=== PATIENT | female | born 1955 | race Caucasian/White ===

== ENCOUNTER 2023-06-04 12:09 | Outpatient (CLI) | payer MEDICARE, SELFPAY ==
--- NOTE | 2023-06-04 13:23 | ECG_ITS ---
Measurements Intervals [place] Rate: 76 P: 21 OK: 181 QRS: -11 QRSD: 86 T: 40 QT: 369 QTc: 416 Interpretive Statements SINUS RHYTHM DELAYED PRECORDIAL R/S TRANSITION CONSIDER INFERIOR INFARCT, AGE INDETERMINATE NONSPECIFIC T-WAVE ABNORMALITY- ANTEROLAT/HIGH LAT LEADS BASELINE ARTIFACT- I, II, AVR, AVL, AVF ABNORMAL ECG NO PREVIOUS ECG AVAILABLE FOR COMPARISON Electronically Signed On 06-04-2023 13:36:35 CDT by Jaylon Chong D.O.
[2023-06-04 13:39] LABS: Basophils Percent Auto 0.8 % (0.2-1.2); Eosinophils Absolute Auto 0.2 K/mm3 (0-0.3); Eosinophils Percent Auto 4.1 % (0-4.4); Hematocrit 44.7 % (37.0-47.0); Hemoglobin 14.7 g/dL (12.0-15.0); Immature Granulocyte Absolute 0.01 K/mm3 (0.00-0.031); Immature Granulocyte Percent A 0.2 % (0-0.5); Lymphocytes Absolute Auto 1.89 K/mm3 (0.9-3.2); Lymphocytes Percent Auto 35.5 % (18.3-44.2); Mean Corpuscular HGB Conc 32.9 g/dl (32-36); Mean Corpuscular Hemoglobin 28.5 pg (26-34); Mean Corpuscular Volume 86.6 fl (80-100); Mean Platelet Volume 8.8 fl (7.4-10.4); Monocytes Absolute Auto 0.8 K/mm3 (0.1-0.6); Monocytes Percent Auto 14.1 % (2.6-8.5); Neutrophils Absolute Auto 2.4 K/mm3 (1.3-6.7); Neutrophils Percent Auto 45.3 % (45.5-73.1); Platelet Count Result 203 k/mm3 (150-375); Red Blood Count 5.16 M/mm3 (4.2-5.4); Red Cell Distribution Width 12.9 % (11.5-14.5); White Blood Count 5.3 K/mm3 (4.5-10.0)
[2023-06-04 13:48] LABS: Alanine Aminotransferase 25 U/L (6-35); Albumin Level 4.8 g/dL (3.5-5.1); Alkaline Phosphatase 69 U/L (38-126); Anion Gap 10 mmol/L (8-16); Aspartate Amino Transferase 25 U/L (14-36); Bilirubin,Total 0.5 mg/dL (0.2-1.3); Blood Urea Nitrogen 14 mg/dL (7-17); Calcium 9.4 mg/dL (8.4-10.2); Carbon Dioxide 25 mmol/L (22-30); Chloride 105 mmol/L (98-107); Estimated Glomerular Filt Rate > 60; Glucose 102 mg/dL (65-110); Potassium 3.9 mmol/L (3.4-5.0); Sodium 140 mmol/L (137-145)
[2023-06-04 13:50] LABS: INR 0.9; Partial Thromboplastin Time 27.1 SECONDS (22.3-36.8); Prothrombin Time 12.9 Seconds (11.1-14.7)
== END 2023-06-04 12:10 | disposition home or self-care (01) ==
LOC: ANHSURGERY 12:10
PROVIDERS: Visit Provider Urology
DX: N81.10 Cystocele, unspecified (principal); E78.00 Pure hypercholesterolemia, unspecified; Z01.818 Encounter for other preprocedural examination; R94.31 Abnormal electrocardiogram [ECG] [EKG]
CPT/HCPCS: 36415; 80053; 85025; 85610; 85730; 86850; 86900; 86901; 93005

== ENCOUNTER 2023-06-15 02:28 | Day surgery (SDC) | payer MEDICARE, SELFPAY ==
[2023-06-04 12:26] VITALS: BMI 31.2
--- NOTE | 2023-06-04 13:03 | PC.NURSE ---
Report to the Outpatient Waiting Room, entrance under the green pavilion located off [facility], at time _0600 on date _06/15/23 . Planned Procedure Time: ____30____. Time changes happen often and if your time is changed the preop area will call you the afternoon before. - You and your visitor will be asked to self-screen and do not enter if you have any COVID symptoms. - A mask is optional within the hospital at this time. Patients may have clear liquids (water, carbonated beverages, clear teas, apple juice) until 3 hours prior to surgery with a maximum of 20 ounces. - No food from midnight until time of surgery - Infants may have breast milk until 4 hours before surgery, infant formula 6 hours prior to surgery. - Children will be allowed to drink immediately following surgery. If applicable, please bring a bottle or sippy cup to assist with drinking. Juice, water, soda, and popsicles are readily available. For infants on formula, please bring formula the day of surgery. Pacifiers are allowed. Take the following medications with a SIP of water the morning of surgery: ___NONE DO NOT STOP ANY OF YOUR OTHER PRESCRIPTION MEDICATIONS PRIOR TO SURGERY ?EXCEPT THE FOLLOWING Medications to discontinue per physician ____ALL VITAMINS/SUPPLEMENTS 3 DAYS PRE OP.LAST DOSE 06/12/23 Please no make-up, nail slovenian, hairspray, perfume, deodorant, or body powder the day of surgery. No jewelry (including any body piercings) or valuables the day of surgery, leave them at home. Please take a shower or bath the night before, or the morning of, surgery with an antibacterial soap. Wear comfortable, loose fitting clothing. Children are encouraged to wear pajamas. - Jewelry must be removed prior to entering the operating room. Rings and piercings that are not removed may be cut off. - The hospital will not accept responsibility for valuables. - Please leave all valuables, including medications, at home the day of surgery. If you are going home after surgery, a licensed tanker truck driver must drive you home. - NO public transportation without another adult if you receive anesthesia. - We recommend that an adult stay with you for 24 hours following discharge. - We also recommend that you do not drive, make important decision, drink alcoholic beverages, or take any drugs that were not prescribed by your health care provider for at least 24 hours after your discharge time. For Pediatric surgeries, we recommend two adults accompany the child home. Follow any additional instructions given to you from your surgeon. If you or anyone in your household have experienced Covid symptoms in the past week, please notify your surgeon or the nurse liaison at the phone number below for possible testing. VERBAL AND WRITTEN instructions given to _PATIENT AND SPOUSE JAZZ and asked if any additional questions and then verbalized understanding. Patient advised to call surgeon office or pre surgery nurse liaison [phone] if any additional questions.
[2023-06-04 13:27] VITALS: BP 136/72; PULSE 79; RESP 18; TEMP 36.7; O2SAT 98
--- NOTE | 2023-06-12 09:12 | PM.IMHP ---
H&P: HPI History of Present Illness Date/Time: 06/12/23 09:12 Chief Complaint: Pelvic organ prolapse Narrative: 67-year-old with posthysterectomy pelvic organ prolapse. She has no stress incontinence by history or by urodynamics. She presents for operative repair. She would like a robotic procedure. Review of Systems Review of Systems: All systems reviewed & are unremarkable except as noted in HPI and below PMFSH Social History Social History Smoking status: Never smoker Living arrangements: with family Spiritual care concerns: No Meds Home Medications and Allergies Home Medications Medication Instructions Recorded Confirmed Type acetaminophen 500 mg capsule 500 mg PO Q6H PRN Pain 06/04/23 06/04/23 History anastrozole 1 mg tablet 1 mg PO HS 06/04/23 06/04/23 History calcium carbonate 500 mg calcium 500 mg PO HS 06/04/23 06/04/23 History (1,250 mg) tablet cholecalciferol (vitamin D3) 50 50 mcg PO HS 06/04/23 06/04/23 History mcg (2,000 unit) tablet loratadine 10 mg tablet (Claritin) 10 mg PO DAILY PRN Allergy Symptoms 06/04/23 06/04/23 History omeprazole 40 mg capsule,delayed 40 mg PO HS 06/04/23 06/04/23 History release simvastatin 40 mg tablet 40 mg PO HS 06/04/23 06/04/23 History Allergies Allergy/AdvReac Type Severity Reaction Status Date / Time adhesive tape AdvReac Rash Verified 06/04/23 12:32 levofloxacin [From Levaquin] AdvReac Rash Verified 06/04/23 12:28 Penicillins AdvReac Hives Verified 06/04/23 12:27 Sulfa (Sulfonamide AdvReac Nausea and Verified 06/04/23 12:28 Antibiotics) Vomiting Exam Narrative: No acute distress Poor dentition Paramedian incision Cystocele at +4 apex at -1 Alert orient x3 Assessment and Plan Assessment and plan (1) Prolapse of vaginal vault after hysterectomy: Code(s): N99.3 - Prolapse of vaginal vault after hysterectomy Status: Acute Assessment and Plan: Robotic sacral colpopexy. Understands risks of bleeding, infection, damage to the urinary tract, damage to surrounding organs, inability to perform the procedure due to intra-abdominal adhesions, hip and leg pain, postoperative voiding dysfunction including incontinence and retention, need for ancillary procedures, recurrence of prolapse, mesh related complications including exposure and extrusion, dyspareunia. She agrees to proceed
[2023-06-15] VITALS (9 sets, daily range): BP systolic 116–145; BP diastolic 59–96; PULSE 69–89; RESP 12–20; TEMP 36.1–36.3; O2SAT 98–100
[2023-06-15] MEDS: LACTATED RINGERS 1,000 ML 30 ML IV CONT ×2 (06:25→10:12)
--- NOTE | 2023-06-15 07:14 | WPDHPUPDATE1 ---
History and Physical Update Update Date/Time: 06/15/23 07:14 History and Physical has been reviewed, including an updated exam of the patient. There are NO changes in the patient's condition. Risks, benefits, and alternatives have been discussed and questions answered. Patient agrees to proceed with procedure.
--- NOTE | 2023-06-15 07:15 | WPDANESEPPF ---
Anes - Initial Pre Proc Eval Procedure: Operation Date: 06/15/23 07:30 Proposed Procedures p Robotic Sacrocolpopexy - Wagner Sanchez MD s Urethral Sling - Wagner Sanchez MD Date/Time: 06/15/23 07:15 Surgeon: Wagner Sanchez MD Pre Op Diagnosis: Prolapse of Vag Vault after Hyst Patient Data Age: 67 Gender: F Height: 1.55 m Weight: 74.8 kg Last Vital Signs Temp 36.3 C L 06/15/23 06:07 Pulse 71 06/15/23 06:07 Resp 18 06/15/23 06:07 BP 145/69 H 06/15/23 06:07 Pulse Ox 98 06/15/23 06:07 O2 Del Method Room Air 06/15/23 06:07 Allergies Allergy/AdvReac Type Severity Reaction Status Date / Time adhesive tape AdvReac Rash Verified 06/04/23 12:32 levofloxacin [From Levaquin] AdvReac Rash Verified 06/04/23 12:28 Penicillins AdvReac Hives Verified 06/04/23 12:27 Sulfa (Sulfonamide AdvReac Nausea and Verified 06/04/23 12:28 Antibiotics) Vomiting Home Medications Medication Instructions Recorded Confirmed Type acetaminophen 500 mg capsule 500 mg PO Q6H PRN Pain 06/04/23 06/04/23 History anastrozole 1 mg tablet 1 mg PO HS 06/04/23 06/04/23 History calcium carbonate 500 mg calcium 500 mg PO HS 06/04/23 06/04/23 History (1,250 mg) tablet cholecalciferol (vitamin D3) 50 50 mcg PO HS 06/04/23 06/04/23 History mcg (2,000 unit) tablet loratadine 10 mg tablet (Claritin) 10 mg PO DAILY PRN Allergy Symptoms 06/04/23 06/04/23 History omeprazole 40 mg capsule,delayed 40 mg PO HS 06/04/23 06/04/23 History release simvastatin 40 mg tablet 40 mg PO HS 06/04/23 06/04/23 History Patient hx anesthesia problems: none Family hx anesthesia problems: none Results Review: All pre-operative results and documents have been reviewed as part of the pre-operative evaluation. REPLACED BY [facility] Social History Social History Smoking status: Never smoker Living arrangements: with family Spiritual care concerns: No Anes - Eval Final PreProcedure Day of Procedure 06/15/23 07:15 Patient weight: obese Heart: regular rate and rhythm Lungs: clear to auscultation Airway: Mallampati scale class III Neurological: alert and oriented Last oral intake: >/= 8 hours ASA classification: III Emergent: no Anesthetic plan: proceed Anesthesia type and monitoring: general ETT and standard monitoring Results Review: All pre-operative results and documents have been reviewed as part of the pre-operative evaluation. Informed Consent: The patient's anesthetic plan and its attendant risks and benefits were discussed with the patient/family/POA. Questions were solicited and answers provided to the satisfaction of the patient/family/POA.
[2023-06-15] MEDS: ceFAZolin 2 GM/D5W 50 ML 2 GM/50 ML BAG IVPB (07:28)
[2023-06-15] MEDS: BUPivacaine HCL 0.25% PF 30 ML VIAL INFILTRATE (08:02)
--- NOTE | 2023-06-15 10:10 | W.PM.PROC2 ---
Procedure Note - Detailed Date of Procedure 06/15/23 Pre-op Diagnosis Prolapse of Vag Vault after Hyst Post-op Diagnosis Same Procedure Performed Robotic assisted lysis of adhesions for 30 minutes Robotic assisted laparoscopic sacral colpopexy Cystoscopy Surgeon Wagner Sanchez MD Anesthesia General Indications This is a woman with post hysterectomy vaginal vault prolapse without stress incontinence. She desires surgical correction. She understands risks of bleeding, infection, diskitis, damage to surrounding organs, damage to the bowel or urinary tract, recurrence of prolapse, dyspareunia, vaginal mesh exposure, urinary tract mesh exposure, obstructive voiding requiring secondary procedure, hip and leg pain, and other perioperative intraoperative and postoperative complications. She has had multiple tunnel surgeries. She understands of risks of adhesions in and damage to surrounding organs. She is to proceed Findings Adhesions of omentum to anterior abdominal wall. Dense adhesions of left colon into the pelvis and cul-de-sac Description of Procedure She was correctly identified. Informed consent obtained. She is brought to the operating room. She was given general anesthesia. She was placed in the lithotomy position. She was given appropriate perioperative antibiotics. She was prepped and draped in a sterile fashion. A time-out performed. I anesthetized the skin 3 fingerbreadths cephalad to the umbilicus. I incised the skin. I located the fascia. I grasped the fascia with Israel clamps. I incised the fascia sharply and a Gomez type technique. I placed Vicryl sutures for later fascial closure. I used my finger to bluntly dissect adhesions away from port sites. I placed a midline trocar. Under direct vision placed 2 additional trocars in the right upper quadrant and 2 additional trocars in the left upper quadrant. She was placed in steep Trendelenburg. The robot was docked. I sat at the console. She had significant adhesions of omentum to the anterior abdominal wall. I performed an he has heel lysis. This was done bluntly. This allowed the omentum to get off the anterior abdominal wall. I then examined the pelvis. She had dense adhesions of left colon in the entire cul-de-sac and left and right pelvis. I performed a lysis of these adhesions using mostly blunt dissection and pinpoint cautery. The entirety of lysis took 30 minutes. With the Sizer in the vagina and created a plane on the anterior and posterior vaginal wall for several cm taking great care not to injure the vagina, bladder, or rectum. Of note the bladder was densely adherent to the anterior vaginal wall. I could only clear a small section of bladder off the anterior vaginal wall. I introduced the mesh into the vagina. I sewed the anterior leaflet of mesh on the anterior vaginal wall and posterior leaf of the mesh on the posterior vaginal wall with several sutures of 2 0 [place]-Don[place] taking great care not to go through and through the vagina. I was only able to get 6 sutures on the anterior vaginal wall. I was able to get 8 sutures on the posterior vaginal wall. I then opened up the peritoneum over the sacral promontory. I carried this incision into the cul-de-sac. I freed up the edges for later retroperitonealization of the mesh. I located the anterior longitudinal ligament of the sacrum. I cleaned off any fatty tissues. I then tensioned my mesh appropriately. I did a vaginal exam to ensure prolapse reduction without undue tension. I then sewed the proximal leaflet of mesh onto the ligament with several sutures of 2 0 [place]-Donell. I then used a 2 0 Monocryl to meticulously retroperitonealized all mesh. I allowed the colon to go back into its normal anatomic location. There is no sign of impingement. He had an was then exited. Fascial sutures were closed. The wounds were all irrigated and closed with 4 O Monocryl and skin glue. I then performed cystosco
[2023-06-15] MEDS: fentaNYL CITRATE INJ (*CRX) 100 MCG/2 ML VIAL 25 MCG IV PUSH ×2 (10:40→10:58)
--- NOTE | 2023-06-15 10:45 | SUR.PHASEI ---
1045: Simple mask removed.
[2023-06-15] MEDS: oxyCODONE HCL (*CRX) 5 MG TAB IR PO (12:08)
== END 2023-06-15 13:05 | disposition home or self-care (01) ==
PROVIDERS: Visit Provider Urology
PROC: (CPT 57425; principal; 2023-06-15 07:30)
DX: N99.3 Prolapse of vaginal vault after hysterectomy (principal); N73.6 Female pelvic peritoneal adhesions (postinfective); Z79.811 Long term (current) use of aromatase inhibitors
CPT/HCPCS: 57425; S2900; A9270; C1781; C9290; J0690; J2250; J3010; J7030; J7120